=== PATIENT | female | born 1985 | race Caucasian/White ===

== ENCOUNTER 2017-07-04 11:00 | Inpatient (IN) | payer OTHER ==
[~2017-07-04] VITALS: Ht 162.6 cm; Wt 88.7 kg
[2017-07-04 11:47] VITALS: BP 132/78; PULSE 88; RESP 18; Ht 162.6 cm; Wt 88.7 kg
[2017-07-04] MEDS ORDERED: PNV91TAB6 PO (11:56)
[2017-07-04] MEDS ORDERED: LACTATED RINGER'S 1,000 ML IV PRN (12:00)
[2017-07-04] MEDS ORDERED: METHYLERGONOVINE 0.2 MG INJ IM PRN (12:00)
[2017-07-04] MEDS ORDERED: IBUPROFEN 600 MG TAB PO PRN (12:00)
[2017-07-04] MEDS ORDERED: MISOPROSTOL 200 MCG TAB PR PRN (12:00)
[2017-07-04] MEDS ORDERED: CARBOPROST 250 MCG INJ IM PRN (12:00)
[2017-07-04] MEDS ORDERED: AMPICILLIN 2 GM/NS (PMX) 100 ML IV ONE (12:00)
[2017-07-04] MEDS ORDERED: LIDOCAINE 1% (MPF) 30 ML INJ INJ PRN (12:00)
[2017-07-04] MEDS ORDERED: BUTORPHANOL 2 MG INJ IV PRN (12:00)
[2017-07-04] MEDS ORDERED: OXYTOCIN 30 UNITS/LR 500 ML IV SCH ×3 (12:00→14:30)
[2017-07-04] MEDS ORDERED: OXYTOCIN 30 UNITS/LR 500 ML IV PRN (12:00)
[2017-07-04 12:01] LABS: BASOPHIL # 0.1 10^3/ul (0.0-0.1); BASOPHILS % 0.5 % (0.0-2.0); EOSINOPHILS # 0.2 10^3/ul (0.0-0.5); EOSINOPHILS % 1.7 % (0.0-7.0); HEMATOCRIT 36.2 % (37.0-47.0); HEMOGLOBIN 12.1 g/dl (12.0-16.0); LYMPHOCYTES # 2.3 10^3/ul (0.8-2.9); MEAN CORPUSCULAR HEMOGLOBIN 28.3 pg (29.0-33.0); MEAN CORPUSCULAR HGB CONC 33.4 g/dl (32.0-37.0); MEAN CORPUSCULAR VOLUME 84.6 fl (82.0-101.0); MONOCYTE # 0.8 10^3/ul (0.3-0.9); NEUTROPHIL # 6.6 10^3/ul (1.6-7.5); NEUTROPHILS % 66.3 % (39.0-77.0); PLATELET COUNT 244 10^3/UL (140-415); RED BLOOD COUNT 4.28 10^6/ul (4.20-5.40); RED CELL DISTRIBUTION WIDTH 13.4 % (11.5-14.5)
[2017-07-04] MEDS: LACTATED RINGER'S 1,000 ML IV SCH ×2 (12:08→19:01)
[2017-07-04 12:40] LABS: INR 0.88; PARTIAL THROMBOPLASTIN TIME 29.9 Sec (25.0-35.0); PROTIME 11.9 Sec (12.2-14.2); PT RATIO 0.9
--- NOTE | 2017-07-04 13:34 | RADRPT ---
PROCEDURE: US OB. CLINICAL INDICATION: Size and dates , labor pain TECHNIQUE: Multiple sonographic images of the pelvis and gravid uterus were obtained. The images were reviewed on a PACS workstation. COMPARISON: No prior studies are available for comparison. FINDINGS: There is a single viable intrauterine gestation. Cardiac activity is present with 134 beats per min vita. There is a vertex presentation. The placenta is fundal. There is no evidence for an abruption or placenta previa. Measurements were made in order to determine age. The results are as follows: BPD =8.9 cm HC =32 cm AC =35.1 cm FL =7.4 cm Estimated gestational age of approximately 37 weeks and 1 day based on ultrasound measurements. Clinical age: 40 weeks and 2 days. The estimated date of delivery is 07/24/17, based on ultrasound measurements. The EFW = 3358 g, 25%, based on LMP age. RPTAT: AA IMPRESSION: Single viable intrauterine gestation of approximately 37 weeks and 1 day based on ultrasound measur ements. Smaller than clinical age by 3 weeks. .Hermilo Dey MD, MD Date Time Electronically viewed and signed by .Hermilo Dey MD, on 07/04/2017 13:34 .S/
[2017-07-04 13:40] LABS: ADD UMIC NO; UR ASCORBIC ACID NEGATIVE (NEGATIVE); UR BILIRUBIN (Dip) NEGATIVE (NEGATIVE); UR BLOOD (Dip) NEGATIVE (NEGATIVE); UR CLARITY CLEAR (CLEAR); UR COLOR YELLOW (YELLOW); UR GLUCOSE (Dip) NEGATIVE (NEGATIVE); UR KETONES (Dip) NEGATIVE (NEGATIVE); UR LEUKOCYTE ESTERASE (Dip) NEGATIVE Leu/ul (NEGATIVE); UR NITRITE (Dip) NEGATIVE (NEGATIVE); UR SPECIFIC GRAVITY (Dip) 1.027 (1.003-1.030); UR TOTAL PROTEIN (Dip) NEGATIVE (NEGATIVE); UR UROBILINOGEN (Dip) NEGATIVE (NEGATIVE)
[2017-07-04 16:03] LABS: CANNABINOIDS Positive (NEGATIVE)
[2017-07-04 16:04] LABS: BARBITURATES Negative (NEGATIVE); BENZODIAZEPINES Negative (NEGATIVE); COCAINE Negative (NEGATIVE); OPIATES Negative (NEGATIVE)
[2017-07-04] MEDS: AMPICILLIN 1 GM/NS (PMX) 50 ML IV SCH ×2 (16:14→21:14)
--- NOTE | 2017-07-04 19:45 | PREOPHP ---
DATE OF ADMISSION: 07/04/2017 HISTORY OF PRESENT ILLNESS: Ms. Felicitas Yoo is a 31-year-old old 2, para 1, EDC 07/02/2017, intrauterine at 40 weeks and 2 days gestational age, admitted today for post-EDC induction. She is currently on Pitocin. She reports positive contractions, positive movement. Negative vaginal bleeding or discharge. Her care took place at [facility]. PAST MEDICAL HISTORY: None. MEDICATIONS: vitamins. PAST SURGICAL HISTORY: None. OBSTETRICAL HISTORY: One vaginal delivery. GYNECOLOGIC HISTORY: 14, regular, 3 to 4 days. Denies any sexually transmitted disease. Sexually active with 1 partner. SOCIAL HISTORY: Denies any smoking, drugs or alcohol. FAMILY HISTORY: None. REVIEW OF SYSTEMS: All within normal except history of present illness. PHYSICAL EXAMINATION: HEENT: Within normal. LUNGS: CTA bilateral. CARDIOVASCULAR: S1, S2, regular rhythm. ABDOMEN: Gravid, nontender. Negative CVA bilateral. EXTREMITIES: Negative edema. No calf tenderness. PELVIC: Vaginal exam 2, 50, -3. ASSESSMENT: A 31-year-old 2, para 1, intrauterine at 40 weeks and 2 days gestational age, admitted for post-estimated date of confinement induction, currently on Pitocin, Rh negative. PLAN: Continue Pitocin induction. Risks, benefits and alternatives explained. All questions were answered. Dictated By: ISA MEDINA/LEE ANN Conf#: [id number] DID#: [id number] CC: ISA JAVIER MD;*EndCC* MTDD
[2017-07-04] MEDS ORDERED: FENTAnyl 2MCG/ML-ROPIV 0.2% 100 ML ONE (20:41)
[2017-07-04] MEDS ORDERED: DIPHENHYDRAMINE 50 MG INJ IV PRN (21:00)
[2017-07-04] MEDS ORDERED: NALOXONE (0.4 MG/ML) INJ IV PRN (21:00)
[2017-07-04] MEDS ORDERED: ONDANSETRON 4 MG INJ IV PRN (21:00)
[2017-07-04] MEDS ORDERED: FENTAnyl 2MCG/ML-ROPIV 0.2% 100 ML BAG EPI SCH (21:00)
[2017-07-05] MEDS: AMPICILLIN 1 GM/NS (PMX) 50 ML IV SCH ×2 (01:01→04:58)
[2017-07-05] MEDS: LACTATED RINGER'S 1,000 ML IV SCH (03:50)
--- NOTE | 2017-07-05 06:23 | LDN ---
Date/Time of Note Date/Time of Note DATE: 07/05/17 TIME: 06:20 Delivery Summary Normal spontaneous vaginal delivery Weeks of Gestation 40 Placenta Delivered: Spontaneously Meconium: none Episiotomy: No Laceration repair: First-degree vaginal laceration and left labia laceration repair with 3-0 chromic Anesthesia type: Epidural Estimated blood loss: 150 Sponge & Needle done & correct: Yes All needle counts correct: Yes Any foreign bodies felt in the: No Problems: Infant Delivery Information Sex Infant Sex: female Apgars 1 Minute: 9 5 Minute: 9 Suctioning Nose & mouth suctioned at [place]: No Delee suction performed: No Umbilical Cord Umbilical cord with: 3 Vessels Cord presentations: no nuchal cord Cord Blood was obtained: Yes ISA JAVIER MD Jul 05, 2017 06:23
[2017-07-05] MEDS ORDERED: DIPHENHYDRAMINE 25 MG CAP PO PRN (06:30)
[2017-07-05] MEDS ORDERED: BENZOCAINE 20% 56 ML SPRAY TOP PRN (06:30)
[2017-07-05] MEDS ORDERED: SENNA/DOCUSATE NA (8.6MG/50MG) TAB PO PRN (06:30)
[2017-07-05] MEDS ORDERED: DIBUCAINE 1% 30 GM OINT PR PRN (06:30)
[2017-07-05] MEDS ORDERED: LANOLIN 7 GM TUBE TOP PRN (06:30)
[2017-07-05] MEDS ORDERED: OXYTOCIN 30 UNITS/LR 500 ML IV PRN (06:30)
[2017-07-05] MEDS ORDERED: ONDANSETRON 4 MG INJ IV PRN (06:30)
[2017-07-05] MEDS ORDERED: MISOPROSTOL 200 MCG TAB PR PRN (06:30)
[2017-07-05] MEDS ORDERED: CARBOPROST 250 MCG INJ IM PRN (06:30)
[2017-07-05] MEDS ORDERED: METHYLERGONOVINE 0.2 MG INJ IM PRN (06:30)
[2017-07-05] MEDS ORDERED: HYDROCODONE/APAP (5/325) TAB PO PRN ×2 (06:30)
[2017-07-05] MEDS: IBUPROFEN 600 MG TAB PO SCH ×3 (08:39→18:24)
[2017-07-05 09:40] VITALS: BP 125/72; PULSE 62; RESP 18
[2017-07-05] MEDS: SENNA/DOCUSATE NA (8.6MG/50MG) TAB PO SCH ×2 (10:31→21:51)
[2017-07-05] MEDS: LACTATED RINGER'S 1,000 ML IV* SCH ×3 (10:31→22:23)
[2017-07-05 12:00] VITALS: BP 127/62; RESP 18
[2017-07-05] MEDS: WITCH HAZEL/GLYCERIN PAD PR PRN (12:22)
[2017-07-05] MEDS ORDERED: INFLUENZA VIRUS VACCINE 0.5 ML SYG IM* ONE (14:00)
[2017-07-05 16:00] VITALS: BP 107/64; PULSE 84; RESP 18
[2017-07-05 20:00] VITALS: BP_SYST 108; BP_SYST 121; BP_DIAS 70; BP_DIAS 82; PULSE 69; PULSE 72; RESP 18; RESP 20
[2017-07-06 04:20] VITALS: BP 102/68; PULSE 70; RESP 20
--- NOTE | 2017-07-06 05:42 | QN ---
Documentation Comment Progress note day #1 Patient seen and evaluated awake alert oriented 3 denies any headache nausea vomiting shortness of breath visual changes positive ambulation tolerating diet positive flatulence Vital signs stable afebrile Abdomen soft nontender uterine fundus below umbilicus firm no distention Extremity negative edema no calf tenderness Assessment status post vaginal delivery day 1 stable afebrile Plan follow-up CBC can set her discharge home tomorrow if stable ISA JAVIER MD Jul 06, 2017 05:42
[2017-07-06] MEDS: IBUPROFEN 600 MG TAB PO SCH ×3 (06:22→18:00)
[2017-07-06 08:30] VITALS: BP 107/67; PULSE 67; RESP 18
[2017-07-06] MEDS: LACTATED RINGER'S 1,000 ML IV* SCH (08:35)
[2017-07-06] MEDS: SENNA/DOCUSATE NA (8.6MG/50MG) TAB PO SCH ×2 (09:54→21:50)
[2017-07-06 11:55] LABS: BASOPHIL # 0.1 10^3/ul (0.0-0.1); BASOPHILS % 0.5 % (0.0-2.0); EOSINOPHILS # 0.2 10^3/ul (0.0-0.5); EOSINOPHILS % 1.9 % (0.0-7.0); HEMATOCRIT 33.7 % (37.0-47.0); LYMPHOCYTES # 2.5 10^3/ul (0.8-2.9); LYMPHOCYTES % 20.4 % (15.0-51.0); MEAN CORPUSCULAR HEMOGLOBIN 27.8 pg (29.0-33.0); MEAN CORPUSCULAR HGB CONC 32.6 g/dl (32.0-37.0); MEAN CORPUSCULAR VOLUME 85.1 fl (82.0-101.0); MEAN PLATELET VOLUME 11.6 fl (7.4-10.4); MONOCYTE # 0.7 10^3/ul (0.3-0.9); MONOCYTES % 5.4 % (0.0-11.0); NEUTROPHIL # 8.8 10^3/ul (1.6-7.5); NEUTROPHILS % 71.5 % (39.0-77.0); PLATELET COUNT 214 10^3/UL (140-415); RED BLOOD COUNT 3.96 10^6/ul (4.20-5.40); RED CELL DISTRIBUTION WIDTH 13.4 % (11.5-14.5); WHITE BLOOD COUNT 12.3 10^3/ul (4.8-10.8)
[2017-07-06 16:10] VITALS: BP 111/63; RESP 18
[2017-07-06 20:00] VITALS: BP 121/82; PULSE 69; RESP 18
[2017-07-06] MEDS: WITCH HAZEL/GLYCERIN PAD PR PRN (21:50)
[2017-07-07] MEDS: IBUPROFEN 600 MG TAB PO SCH ×3 (01:10→11:56)
[2017-07-07 04:00] VITALS: BP 98/49; PULSE 70; RESP 18
[2017-07-07 07:54] VITALS: BP 106/67; PULSE 76; RESP 18
[2017-07-07] MEDS: SENNA/DOCUSATE NA (8.6MG/50MG) TAB PO SCH (08:36)
--- NOTE | 2017-07-07 10:59 | PD.PPDC ---
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
--- NOTE | 2017-07-07 11:01 | DS ---
Date/Time of Note Date/Time of Note DATE: 07/07/17 TIME: 11:00 Obstetrical Discharge Record Final Diagnosis Final Diagnosis: Term delivered Vaginal Delivery Obstetrical Delivery: Laceration, Repaired Complications Augmentation: No Induction: Yes Condition on Discharge Physical Assessment Last Vitals: stable afebrile Voiding: Yes Bowel Movement: Yes Breast: Soft, non-tender, Filling Fundus: Firm Calf Tenderness: No Patient Condition: Fair ISA JAVIER MD Jul 07, 2017 11:01
== END 2017-07-07 14:00 | disposition home or self-care (01) | DRG 775 ==
LOC: L-D 11:01 → PP1 07-05 09:36
PROVIDERS: ADMIT Obstetrics & Gynecology; ATTEND Obstetrics & Gynecology
PROC: 10E0XZZ Delivery of Products of Conception, External Approach (ICD-10-PCS; principal; 2017-07-05)
PROC: 0HQ9XZZ Repair Perineum Skin, External Approach (ICD-10-PCS; 2017-07-05)
PROC: 3E033VJ Introduction of Other Hormone into Peripheral Vein, Percutaneous Approach (ICD-10-PCS; 2017-07-05)
DX: O48.0 Post-term pregnancy (principal); O71.4 Obstetric high vaginal laceration alone; Z3A.40 40 weeks gestation of pregnancy; Z37.0 Single live birth
CPT/HCPCS: 62319; 76815; 80307; 81003; 85025; 85610; 85730; 86592; 86850; 86885; 86900; 86901; 87340; 90686; J0290; J2405; J2590; J2790; J3010; J7120